=== PATIENT | female | born 1945 | race Caucasian/White ===

== ENCOUNTER → 2023-09-28 12:45 | Outpatient (REF) | payer OTHER, SELFPAY | LOC: RAD 12:45 | PROVIDERS: ATTENDING PHYSICIAN Surgery Vascular Surgery | DX: I65.21 Occlusion and stenosis of right carotid artery (principal) | CPT/HCPCS: 93880 ==

== ENCOUNTER → 2024-04-30 11:27 | Outpatient (REF) | payer OTHER, SELFPAY | LOC: RAD 11:27 | PROVIDERS: ATTENDING PHYSICIAN Registered Nurse; FAMILY PHYSICIAN Family Medicine | DX: I65.21 Occlusion and stenosis of right carotid artery (principal) | CPT/HCPCS: 93880 ==

== ENCOUNTER 2024-08-19 11:15 | Emergency (ER) | payer OTHER, SELFPAY ==
[2024-08-19] VITALS (8 sets, daily range): BP systolic 149–195; BP diastolic 51–80; PULSE 51–53
--- NOTE | 2024-08-19 11:35 | ED.GENMED ---
History of Present Illness
General
Chief Complaint: Head Injury
Source: patient and family (Patient son at bedside)
Exam Limitations: none
Time Seen by Provider: 08/19/24 11:34
Nursing documentation reviewed up to this point in time: agreed with
History of Present Illness
History of Present Illness:
79-year-old female with history atrial fibrillation on Eliquis, CVA, hypertension, hyperlipidemia presenting to the emergency department after fall this morning with head strike. Patient states that around 745 she was standing up in her kitchen
scrolling on her phone when she started to feel extremely hot, sweaty and what she describes as 'floopy'. She then fell striking the back of her head. She does not remember falling. Patient denies any preceding visual changes, headache, chest
pain, shortness of breath, numbness/tingling, or weakness. Patient denies any dizziness.
Patient did thank you call her son as she noticed a small amount of blood on the floor she was seen in an urgent care prior to ED visit where they updated her tetanus and referred her for further ration.
By my assessment�patient denies any current complaints. No headache, nausea/vomiting, dizziness, lightheadedness. No chest pain or shortness of breath. No abdominal or recent URI symptoms.
Past History
Past History
ED Past Medical History: GERD, HTN and Hypercholesterolemia
ED Past Surgical History: None
Social History
Tobacco: Non-smoker
Alcohol: None
Drug: None
Living: with family
Review of Systems
Review of Systems
Allergies reviewed?: Yes
All Other Systems: ROS reviewed and negative except as documented in HPI and ROS
Phy Exam
Physical Exam
Physical Exam:
Vitals: Hypertensive, otherwise stable vital signs. Afebrile
General: Patient is well appearing, no acute distress. Nontoxic appearing
Skin: Very small approximately 1 cm abrasion on posterior scalp, not actively bleeding.
Head: Normocephalic, small abrasion to posterior scalp as noted above.
Eyes: Sclera nonicteric. Pupils equal round and reactive to light bilaterally. EOMs intact. No nystagmus.
Throat: Protecting airway
Neck: Normal ROM, no cervical spine tenderness, no meningismus. Full range of motion in neck.
Cardiac: Regular rate and rhythm, no murmurs. No reproducible chest wall tenderness.
Pulm: Normal respiratory effort, no wheezes, rales, rhonchi heard on exam.
Abdomen: Abdomen soft and nontender.
Back: Mild tenderness overlying coccyx without any overlying erythema or ecchymoses.
Extremities: No evidence of cyanosis or edema. Strength 5 of 5 in upper and lower extremities. Sensation fully intact.
Neuro: AAOx3. CN II-XII intact. Normal finger-nose. Fluid speech. Steady gait. No facial droop or asymmetry.
Psychiatric: Normal affect.
Course
Orders/Labs/Results
Orders:
Orders
08/19/24 11:[address] [CT Head W/o Iv Contrast] Urgent
Comment:
Reason For Exam: fall +thinners
08/19/24 11:22
ECG [Electrocardiogram (*1)] Urgent
Reason for Study: Vertigo / Dizzy
EKG- Treatment ONCE
08/19/24 11:56
Orthostatic VS- Treatment ONCE
0.9% Sodium Chloride 1000 ml [Nss] 1,000 ml IV BOLUS
08/19/24 12:12
COVID-19 Antigen Urgent
Source: Nasal Swab
Complete Blood Count/With Diff Urgent
Comprehensive Metabolic Panel Urgent
Troponin I Urgent
Influenza A+B Rapid Molecular Urgent
NATY Source: Nasal Swab
Specimen Description:
Abnormal Lab Results
08/19/24
12:12
MPV 10.7 H fL
(7.4-10.4)
Absolute Neuts (auto) 7.5 H 10^3/uL
(1.4-6.5)
Absolute Lymphs (auto) 1.1 L 10^3/uL
(1.2-3.4)
Neutrophils % 82.5 H %
(42.2-75.2)
Lymphocytes % 12.2 L %
(20.5-51.1)
BUN 23 H mg/dl
(7-17)
ALT 48 H U/L
(0-35)
Alkaline Phosphatase 148 H U/L
(38-126)
08/19/24 12:12
08/19/24 12:12
Vital Signs
Initial and Last Documented VS:
Initial Vital Signs
Temp Pulse Resp BP Pulse Ox
98.1 F 54 20 195/73 98
08/19/24 11:18 08/19/24 11:18 08/19/24 11:18 08/19/24 11:18 08/19/24 11:18
Last Documented Vital Signs
Temp Pulse Resp BP Pulse Ox
98.1 F 53 19 149/55 97
08/19/24 11:18 08/19/24 13:15 08/19/24 13:15 08/19/24 13:00 08/19/24 13:15
MDM/Problems Addressed
Differential Diagnosis Includes:
Not limited to: Orthostatic hypotension, vasovagal syncope, cardiac arrhythmia, viral illness, hypoglycemia, intraparenchymal hemorrhage,
MDM/Problems Addressed:
79 year old female on eliquis presenting after syncopal episode with head strike around 745AM. No preceding dizziness, chest pain, or shortness of breath. However - patient did notice feeling hot, sweaty, and lightheaded. Patient asymptomatic by
arrival to emergency department. She arrives hypertensive, otherwise with stable vital signs. On exam patient well appearing, NAD. Very mild abrasion of posterior scalp which was irrigated with NS, no indication for primary closure - not actively
bleeding. She has normal ROM of neck with no C-spine tenderness. Mild tenderness of coccyx without erythema or ecchymoses. Offered xray - which patient declines. Abdomen soft and nontender. Heart RRR. LCTAB. Patient has palpable and equal peripheral
pulses. No lower extremity edema.
Workup in ED unremarkable including labwork, head CT, and viral swabs. Ekg without acute ischemic changes or arrhythmia. troponin undetectable. Normal orthostatic VS. Patient did receive a liter of fluids. She is imbulating independently without
difficulty. Overall impression is likely vasovagal syncopal event. Other considerations include hypoglycemia, viral illness, or dehydration. Unable to exclude underlying cardiac arrythmia which would be concern. Do not suspect PE. Do not suspect
central process. Offered patient admission for observation although she would perfer to go home with her children. They will monitor her closely and f/u with PCP and cardiology. I feel this is reasonable. Advised po hydration, rest. Return
precautions discussed. Case discussed with attending physician.
Chronic conditions affecting care:
Hypertension, hyperlipidemia
Acute Exacerbation and/or Progression of Chronic Illness:
Acutely hypertensive
*Radiology
Radiology exam reviewed: preliminary read by ED provider (Head CT reviewed by me-no acute intracranial abnormality) and radiology read reviewed
*Pulse Oximetry
Patient hypoxic: no
*EKG
Interpreted by ED Provider?: Yes
EKG Intrepretation Date: 08/19/24
Interpretation: abnormal
Comparison EKG: changes noted
Heart Rate: 55
Rate: bradycardiac
Rhythm: sinus
[place]: left axis deviation
QRS Pattern: left vent hypertrophy
Ischemia: no ischemia
*Relief Pilot Interpretation
Rate: normal
Interpretation: normal
Heart Rate: 60
Rhythm: sinus
*Critical Care Note
Total Time (30-74mins, 75-104mins- exclusive of procedures): Not Applicable
Data Reviewed
Review of Other/Old Records Reveals: Testing (Cardiac echocardiogram from 05/10/2023 which showed normal ventricular function, mild LVH)
ED Attending Note
-
Portions of this chart may have been created with voice recognition software.� Occasional wrong word or��sound alike� substitutions may have occurred due to the inherent limitations of voice recognition software.
Discharge Plan
Departure
Patient Disposition: Home (Routine Discharge)
Date of Disposition: 08/19/24
Time of Disposition: 14:17
Patient with high blood pressure during this ER visit?: Yes
Covid-19: Negative COVID-19
Discharge Problem:
Vasovagal syncope, Head injury
Instructions: Head Injury in Adults (DC), Syncope (fainting) - Discharge instructions, BLOOD PRESSURE
Prescriptions:
No Action
omeprazole magnesium [Prilosec OTC] 20 mg Tablet,Delayed Release (Dr/Ec)
20 mg PO DAILY
therapeutic multivitamin Tablet
1 tab PO DAILY
calcium citrate-vitamin D3 250 mg-5 mcg (200 unit) Tablet
1 tab PO BID
cholecalciferol (vitamin D3) 25 mcg (1,000 unit) Tablet
25 mcg PO Q48H
Eliquis 5 mg Tablet
5 mg PO BID Qty: 60 11RF
diltiazem HCl 120 mg Capsule,Extended Release 24hr
120 mg PO BID Qty: 60 0RF
atorvastatin 40 mg Tablet
40 mg PO QPM Qty: 60 0RF
metoprolol succinate 50 mg Tablet Extended Release 24 Hr
50 mg PO BID Qty: 60 0RF
Referrals:
Marlene Olivera DO [Family Provider] - Follow up in 2-3 days
Activity Restrictions/Additional Instructions:
Return to the emergency department with any severe headache/neck pain, changes in mental status, chest pain, shortness of breath, repeat fainting episodes, dizziness/lightheadedness, worsening of current symptoms, or any other concerns
-Discussed that she should take it easy over the next 2 days. Stay well-hydrated. Eat a balanced diet.
-Take your medications as prescribed. Follow-up with your primary care/cardiology for further evaluation/management
-Keep wound on your head clean and dry. Monitor for signs of infection.
-You likely sustained a contusion to your tailbone/coccyx. You should sit on a donut pillow. Apply ice and take Tylenol as needed for discomfort. As discussed�if symptoms persist/worsen you may require an x-ray
Monitor symptoms closely return to the emergency department any acute worsening/new symptoms or any other
Interventions
Interventions:
*Risk Screen - Suicide Last Done: 08/19/24 11:55
*General Assessment Last Done: 08/19/24 11:18
*Neglect/Abuse Screening Last Done: 08/19/24 11:55
ED- Fall Risk Assessment Last Done: 08/19/24 12:21
*Nursing Disposition Last Done: 08/19/24 14:31
ED- Neurological Assessment Last Done: 08/19/24 12:00
ED-Skin Assessment Last Done: 08/19/24 12:00
Discharge Date and Time
Discharge Date/Time: 08/19/24 14:37
Print Language: [id number]
[2024-08-19] MEDS: NSS 1000 IV (12:19)
[2024-08-19 12:21] LABS: % Basophils 0.3 % (0-2); % Eosinophils 0.2 % (0-6); % Immature Granulocytes 0.3 % (0-0.5); % Lymphocytes 12.2 % (20.5-51.1); % Monocytes 4.5 % (1.7-9.3); % Neutrophils 82.5 % (42.2-75.2); Absolute Lymphocytes 1.1 10^3/uL (1.2-3.4); Absolute Monocytes 0.4 10^3/uL (0.1-0.6); Absolute Neutrophils 7.5 10^3/uL (1.4-6.5); Hematocrit 39.5 % (37.0-47.0); Hemoglobin 13.5 g/dL (12.0-16.0); Mean Corp Hgb Conc. 34.2 g/dL (33.0-37.0); Mean Corpuscular Volume 90.6 fL (81.0-99.0); Mean Platelet Volume 10.7 fL (7.4-10.4); Nucleated Red Blood Cells % 0 %; Platelet Count 178 10^3/uL (130-400); Red Blood Cell Count 4.36 10^6/uL (4.20-5.40); Red Cell Dist. Width 11.9 % (11.5-14.5); White Blood Cell Count 9.1 10^3/uL (4.8-10.8)
[2024-08-19 12:36] LABS: ALT (SGPT) 48 U/L (0-35); AST (SGOT) 30 U/L (14-36); Albumin 4.4 g/dl (3.5-5.0); Alkaline Phosphatase 148 U/L (38-126); Blood Urea Nitrogen 23 mg/dl (7-17); Calcium 9.9 mg/dl (8.4-10.2); Carbon Dioxide 26 mmol/L (22-30); Chloride 104 mmol/L (98-107); Glucose 95 mg/dl (70-99); Potassium 4.2 mmol/L (3.5-5.1); Sodium 139 mmol/L (135-145); Total Bilirubin 0.9 mg/dl (0.2-1.3); Total Protein 6.8 g/dl (6.3-8.2); eGFR > 60.00
[2024-08-19 12:47] LABS: Troponin I < 0.012 ng/ml
[2024-08-19 12:51] LABS: COVID-19 Antigen Negative (Negative)
== END 2024-08-19 14:37 | disposition home or self-care (01) ==
LOC: EMR 11:15
PROVIDERS: Physician Assistant; EMERGENCY PHYSICIAN Emergency Medicine; FAMILY PHYSICIAN Family Medicine
DX: S00.01XA Abrasion of scalp, initial encounter (principal); W19.XXXA Unspecified fall, initial encounter; R55 Syncope and collapse; I48.91 Unspecified atrial fibrillation; I10 Essential (primary) hypertension; E78.00 Pure hypercholesterolemia, unspecified; K21.9 Gastro-esophageal reflux disease without esophagitis; Z79.01 Long term (current) use of anticoagulants; Z86.73 Personal history of transient ischemic attack (TIA), and cerebral infarction without residual deficits
CPT/HCPCS: 96360; 99284; 70450; 80053; 84484; 85025; 87502; 87811; 93005

== ENCOUNTER → 2024-11-09 11:44 | Outpatient (REF) | payer OTHER, SELFPAY | LOC: DHVS 11:44 | PROVIDERS: ATTENDING PHYSICIAN Registered Nurse; FAMILY PHYSICIAN Family Medicine | DX: I65.21 Occlusion and stenosis of right carotid artery (principal) | CPT/HCPCS: 93880 ==

== ENCOUNTER → 2025-05-31 14:20 | Outpatient (REF) | payer OTHER, SELFPAY | LOC: RAD 14:20 | PROVIDERS: ATTENDING PHYSICIAN Surgery Vascular Surgery; FAMILY PHYSICIAN Family Medicine | DX: I65.21 Occlusion and stenosis of right carotid artery (principal) | CPT/HCPCS: 93880 ==